=== PATIENT | male | born 1990 ===

== ENCOUNTER 2017-07-26 02:03 | Emergency (ER) | payer BC ==
[2017-07-26] MEDS ORDERED: TYLENOL ONE (02:09)
[2017-07-26] MEDS ORDERED: TYLENOL PO ONE (02:14)
[2017-07-26 02:35] LABS: Hematocrit 38.8 % (35.5-45.6); Hemoglobin 12.9 gm/dl (11.8-15.2); Mean Corpuscular HGB Conc 33 % (32-34); Mean Corpuscular Hemoglobin 30 pg (28-32); Mean Corpuscular Volume 90 fl (84-94); Platelet Count 187 K/mm3 (140-440); Red Cell Distribution Width 13.8 % (13.2-15.2)
[2017-07-26 02:44] LABS: Bilirubin,Urine NEG (Negative); Blood,Urine NEG (Negative); Color,Urine Yellow (Yellow); Mucus,Urine FEW /HPF; Protein,Urine <15 mg/dL mg/dL (Negative)
[2017-07-26 02:48] LABS: Alanine Aminotransferase 6 units/L (7-56); Albumin 4.4 g/dL (3.9-5); BUN/Creatinine Ratio 16; Blood Urea Nitrogen 16 mg/dL (9-20); Calcium 8.8 mg/dL (8.4-10.2); Hemolysis Index 7
[2017-07-26 02:57] LABS: WBC,Urine < 1.0 /HPF (0.0-6.0)
[2017-07-26 03:08] LABS: Eosinophils % (Manual) 0 % (0.0-4.3); Total Cells Counted 100
[2017-07-26 03:09] LABS: Platelet Estimate Consistent w Auto
[2017-07-26] MEDS ORDERED: MOTRIN PO ONE (08:36)
--- NOTE | 2017-07-26 08:38 | Emergency Department Report ---
ED Back Pain/Injury HPI - General Chief Complaint: Back Pain/Injury Stated Complaint: BACK PAIN Time Seen by Provider: 07/26/17 08:34 Source: patient Limitations: No Limitations - History of Present Illness Initial Comments: 27-year-old immunocompromise -[place] male comes in complaint of back pain 1 month. Patient reports he was at work last night and felt like he is aggravated his back. Patient reports he is taking [id number] Motrin and muscle relaxant. He hasn't taken any medicine in the last few days. Patient denies any trauma he reports he was seen before for the same issue at another hospital. He reports a totally had muscle spasms. 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 MD Complaint: back pain -: month(s) (1) Similar Symptoms Previously: Yes Place: work Radiation: none Severity: severe Severity scale (0 -10): 9 Quality: burning, sharp Consistency: constant Improves With: none Worsens With: movement Context: while lifting Associated Symptoms: denies: numbness, difficulty urinating, incontinence, fever /chills - Related Data Previous Rx's Medication Instructions Recorded Last Taken Type Baclofen [Lioresal] 10 mg PO TID PRN #30 tab 07/26/17 Unknown Rx Ibuprofen [Motrin 600 MG tab] 600 mg PO Q6H PRN #30 tablet 07/26/17 Unknown Rx Allergies Allergy/AdvReac Type Severity Reaction Status Date / Time No Known Allergies Allergy Verified 07/26/17 02:15 ED Review of Systems ROS: Stated complaint: BACK PAIN Other details as noted in HPI Constitutional: denies: chills, fever Eyes: denies: eye pain, eye discharge, vision change ENT: denies: ear pain, throat pain Respiratory: denies: cough, shortness of breath, wheezing Cardiovascular: denies: chest pain, palpitations Endocrine: no symptoms reported Gastrointestinal: denies: abdominal pain, nausea, diarrhea Genitourinary: denies: urgency, dysuria Musculoskeletal: back pain. denies: joint swelling, arthralgia Skin: denies: rash, lesions Neurological: denies: headache, weakness, paresthesias Psychiatric: denies: anxiety, depression Hematological/Lymphatic: denies: easy bleeding, easy bruising ED Past Medical Hx - Past Medical History Previous Medical History?: Yes Hx Asthma: Yes Hx HIV: Yes - Surgical History Past Surgical History?: Yes Additional Surgical History: oral - Social History Smoking Status: Never Smoker Substance Use Type: None - Medications Home Medications: Home Medications Medication Instructions Recorded Confirmed Last Taken Type Baclofen [Lioresal] 10 mg PO TID PRN #30 tab 07/26/17 Unknown Rx Ibuprofen [Motrin 600 MG tab] 600 mg PO Q6H PRN #30 tablet 07/26/17 Unknown Rx ED Physical Exam - General Limitations: No Limitations General appearance: alert, in no apparent distress - Head Head exam: Present: atraumatic, normocephalic - Extremities Exam Extremities exam: Present: normal inspection - Back Exam Back exam: Present: normal inspection, tenderness (upper left back at the scapular point), muscle spasm. Absent: paraspinal tenderness - Neurological Exam Neurological exam: Present: alert, oriented X3 - Psychiatric Psychiatric exam: Present: normal affect, normal mood - Skin Skin exam: Present: warm, dry, intact, normal color. Absent: rash ED Course Vital Signs 07/26/17 07/26/17 07/26/17 02:05 02:08 02:26 Temperature 98.3 F 98.3 F Pulse Rate 78 69 Respiratory 18 18 18 Rate Blood Pressure 97/58 97/58 O2 Sat by Pulse 99 99 Oximetry ED Medical Decision Making - Lab Data Result diagrams: 07/26/17 02:24 07/26/17 02:24 - Medical Decision Making Patient has been evaluated by this provider fast track. I discussed with patient that his pain is due to a muscle strain in the upper left back more at the scapular tip. I discussed the patient that with repetitive lifting without a back support can re-aggravate his back spasms. I discussed with patient that he can try taking a muscle relaxant and a nonsteroidal anti-inflammatory medication prior to working this may help. I discussed the patient that he needs to take a few days away from lifting and pulling to allow his strain to improve. Patient verbalized understanding Critical care attestation.: If time is entered above; I have spent that time in minutes in the direct care of this critically ill patient, excluding procedure time. ED Disposition Clinical Impression: Upper back strain Qualifiers: Encounter type: initial encounter Qualified Code(s): S29.012A - Strain of muscle and tendon of back wall of thorax, initial encounter Disposition: DC-01 TO HOME OR SELFCARE Is pt being admited?: No Does the pt Need Aspirin: No Condition: Stable Additional Instructions: Please take medication as prescribed. Please follow-up with your primary care provider if symptoms persist or gets worse. Prescriptions: Baclofen [Lioresal] 10 mg PO TID PRN #30 tab PRN Reason: muscle spasm Ibuprofen [Motrin 600 MG tab] 600 mg PO Q6H PRN #30 tablet PRN Reason: Pain Referrals: PRIMARY CARE, [Primary Care Provider] - 3-5 Days Forms: Work/School Release Form(ED)
[2017-07-26 08:55] VITALS: BP 103/67
== END 2017-07-26 08:56 | disposition home or self-care (01) ==
LOC: ED 02:03
DX: S29.012A Strain of muscle and tendon of back wall of thorax, initial encounter (principal); J45.909 Unspecified asthma, uncomplicated; X50.9XXA Other and unspecified overexertion or strenuous movements or postures, initial encounter; Y93.89 Activity, other specified; Y99.0 Civilian activity done for income or pay; Y92.69 Other specified industrial and construction area as the place of occurrence of the external cause
CPT/HCPCS: 36415; 80053; 81001; 85007; 85025; 99283